=== PATIENT | male | born 1960 | race Hispanic/Latino ===

== ENCOUNTER → 2018-01-06 | Outpatient (CLI) | payer OTHER, MEDICARE ==
[~2018-01-06] VITALS: Ht 167.6 cm; Wt 111.6 kg
[~2018-01-06] MED LIST: REGADENOSON 0.4 MG/5 ML PF SYG IVP SCH
== END | disposition home or self-care (01) ==
LOC: SHCH 08:20
PROVIDERS: ATTEND Internal Medicine Cardiovascular Disease
DX: I25.10 Atherosclerotic heart disease of native coronary artery without angina pectoris (principal); I10 Essential (primary) hypertension
CPT/HCPCS: 78452; 93017; 96374; A9500 ×2; J2785

== ENCOUNTER 2018-06-26 16:44 | Emergency (ER) | payer OTHER, MEDICARE ==
[2018-06-26] MEDS ORDERED: ETOMIDATE 2 MG/ML 10 ML VIAL ONE ×2 (18:57→22:03)
[2018-06-26] MEDS ORDERED: TRAMADOL HCL 50 MG TABLET ONE (21:01)
[2018-06-26] MEDS ORDERED: ONDANSETRON HCL 4 MG/2 ML VIAL ONE (22:40)
[2018-06-26] MEDS ORDERED: MORPHINE SULFATE 2 MG/ML 1ML SYG ONE (22:41)
[2018-06-29] MEDS ORDERED: LISI-613 PO (16:00)
[2018-06-29] MEDS ORDERED: DULA1.5P SQ (16:00)
[2018-06-29] MEDS ORDERED: TOPI100T37 PO (16:00)
[2018-06-29] MEDS ORDERED: FLUT1AER IH (16:00)
[2018-06-29] MEDS ORDERED: INSU3INS3 SQ (16:00)
[2018-06-29] MEDS ORDERED: EMPA25TA PO (16:00)
[2018-06-29] MEDS ORDERED: METF-444 PO (16:00)
[2018-06-29] MEDS ORDERED: TRAM50TA4 PO (16:00)
[2018-06-29] MEDS ORDERED: EZET10TA26 PO (16:00)
[2018-06-29] MEDS ORDERED: GEMF600T4 PO (16:00)
[2018-06-29] MEDS ORDERED: LEVO500T89 PO (16:00)
[2018-06-29] MEDS ORDERED: UMEC62.5 IH (16:13)
== END 2018-06-27 00:10 | disposition home or self-care (01) ==
LOC: EDH 16:44
DX: S43.085A Other dislocation of left shoulder joint, initial encounter (principal); L03.114 Cellulitis of left upper limb; L03.112 Cellulitis of left axilla; I10 Essential (primary) hypertension; E11.9 Type 2 diabetes mellitus without complications; E78.5 Hyperlipidemia, unspecified; Z87.891 Personal history of nicotine dependence; W18.30XA Fall on same level, unspecified, initial encounter; Y93.01 Activity, walking, marching and hiking; Y92.009 Unspecified place in unspecified non-institutional (private) residence as the place of occurrence of the external cause; Y99.8 Other external cause status
CPT/HCPCS: 23650; 73020 ×2; 73030 ×2; 73200; 96374; 96375; 99284; J2405; J3490 ×2

== ENCOUNTER 2018-06-30 09:44 | Observation (INO) | payer OTHER, MEDICARE ==
[2018-06-29 15:40] VITALS: BP 119/67
[2018-06-29 15:50] LABS: CREATININE 0.7 mg/dL (0.5-1.5); POTASSIUM 4.2 mmol/L (3.5-5.1)
[2018-06-30] VITALS (16 sets, daily range): BP systolic 99–127; BP diastolic 54–82
[~2018-06-30] VITALS: Ht 160 cm; Wt 104.7 kg
[~2018-06-30 09:44] MED LIST changes: +CEFAZOLIN 3GM /D5W 100ML 100 ML IV PRN; +DULA1.5P SQ; +EMPA25TA PO; +EZET10TA26 PO; +FLUT1AER IH; +GEMF600T4 PO; +INSU3INS3 SQ; +LEVO500T89 PO; +LISI-613 PO; +METF-444 PO; -REGADENOSON 0.4 MG/5 ML PF SYG IVP SCH; +TOPI100T37 PO; +TRAM50TA4 PO; +UMEC62.5 IH
[2018-06-30] MEDS ORDERED: SODIUM CHLORIDE 0.9% 1000ML 1,000 ML IV ONE (10:28)
[2018-06-30] MEDS ORDERED: CEFAZOLIN SODIUM 1 GM VIAL ONE (10:28)
[2018-06-30] MEDS ORDERED: CLINDAMYCIN 900 MG/D5% WATER 50 ML IV ONE (10:40)
[2018-06-30] MEDS ORDERED: ROPIVACAINE 0.5% 5MG/ML 30ML IJ ONE (13:11)
[2018-06-30] MEDS ORDERED: SODIUM CHLORIDE 0.9% 10 ML VIAL ONE (13:13)
[2018-06-30] MEDS ORDERED: GLYCOPYRROLATE 1 MG/5 ML SYRINGE ONE (13:18)
[2018-06-30] MEDS ORDERED: FENTANYL CITRATE PF 50 MCG/1 ML 2ML VIAL ONE ×3 (13:18→18:27)
[2018-06-30] MEDS ORDERED: ONDANSETRON HCL 4 MG/2 ML VIAL ONE ×2 (13:18→13:49)
[2018-06-30] MEDS ORDERED: DEXAMETHASONE SOD PHOSPHATE 10MG/ML 1ML VIAL ONE ×2 (13:18→13:49)
[2018-06-30] MEDS ORDERED: PROPOFOL 10 MG/ML 20ML VIAL IV ONE (13:18)
[2018-06-30] MEDS ORDERED: NEOSTIGMINE 5MG/5ML SYR IV ONE (13:18)
[2018-06-30] MEDS ORDERED: MIDAZOLAM HCL 1 MG/ML 2ML VIAL ONE (13:18)
[2018-06-30] MEDS ORDERED: LIDOCAINE PF 2% 5ML ABBOJECT ONE ×2 (13:18→13:20)
[2018-06-30] MEDS ORDERED: ROCURONIUM 10MG/1ML SYR 10 MG/ML ML ONE (13:19)
[2018-06-30] MEDS ORDERED: CLINDAMYCIN PHOSPHATE 150 MG/ML 6ML VIAL ONE (13:25)
[2018-06-30] MEDS ORDERED: PHENYLEPHRINE HCL 10 MG/ML 1ML VIAL IV ONE (13:52)
[2018-06-30] MEDS: SODIUM CHLORIDE 0.9% 1000ML 1,000 ML IV SCH (16:59)
[2018-06-30] MEDS ORDERED: TRAMADOL HCL 50 MG TABLET PO PRN (17:00)
[2018-06-30] MEDS ORDERED: CALCIUM CARBONATE 500 MG TABLET PO PRN (17:00)
[2018-06-30] MEDS ORDERED: LIDOCAINE HCL-MPF 1% 2ML VIAL IVP PRN (17:00)
[2018-06-30] MEDS ORDERED: DiphenhydrAMINE HCL 50 MG/ML VIAL IVP PRN (17:00)
[2018-06-30] MEDS ORDERED: POTASSIUM CHLORIDE 20MEQ/100ML 100 ML IV PRN (17:00)
[2018-06-30] MEDS ORDERED: POTASSIUM CHLORIDE 20 MEQ ERTAB PO PRN (17:00)
[2018-06-30] MEDS ORDERED: POTASSIUM CHLORIDE 10% ELIXIR 20 MEQ/15 ML UDCUP PO PRN (17:00)
[2018-06-30] MEDS ORDERED: DIPHENHYDRAMINE HCL 25 MG CAPSULE PO PRN (17:00)
[2018-06-30] MEDS ORDERED: OXYCODONE HCL 5 MG TAB PO PRN (17:00)
[2018-06-30] MEDS ORDERED: PROMETHAZINE HCL 25 MG/ML 1ML AMPULE IM PRN (17:00)
[2018-06-30] MEDS ORDERED: FERROUS FUMARATE 324 MG TABLET PO PRN (17:00)
[2018-06-30] MEDS ORDERED: TEMAZEPAM 15 MG CAPSULE PO PRN (17:00)
[2018-06-30] MEDS ORDERED: KETOROLAC TROMETHAMINE 15MG/ML IV PRN (17:00)
[2018-06-30] MEDS: ACETAMINOPHEN EXTRA STRENGTH 500 MG TABLET PO SCH (17:00)
[2018-06-30] MEDS: INSULIN HUMULIN R 100 UNIT/ML 3ML SQ SCH (21:00)
[2018-06-30] MEDS ORDERED: CEFAZOLIN 3GM /D5W 100ML 100 ML IV SCH (22:00)
[2018-06-30] MEDS: FAMOTIDINE 20MG TAB 20 MG TAB PO SCH (23:33)
[2018-06-30] MEDS: CELECOXIB 200 MG CAP PO SCH (23:34)
[2018-06-30] MEDS: CLINDAMYCIN 900 MG/D5% WATER 50 ML IVPB SCH (23:34)
[2018-07-01] MEDS: ACETAMINOPHEN EXTRA STRENGTH 500 MG TABLET PO SCH ×3 (01:44→16:46)
[2018-07-01] MEDS: SODIUM CHLORIDE 0.9% 1000ML 1,000 ML IV SCH (02:59)
[2018-07-01] MEDS ORDERED: TRAMADOL HCL 50 MG TABLET PO PRN (03:15)
[2018-07-01 03:20] VITALS: BP 105/70
[2018-07-01 04:55] LABS: HEMATOCRIT 40.9 % (42-54); MEAN CORPUSCULAR HEMOGLOBIN 25.8 pg (27.0-33.0); MEAN CORPUSCULAR HGB CONC 31.2 g/dL (32.0-36.0); MEAN CORPUSCULAR VOLUME 82.7 fL (79-99); PLATELET COUNT (AUTO) 293 K/uL (130-400); RED BLOOD CELL COUNT(AUTO) 4.95 MIL/uL (4.50-6.20); RED CELL DISTRIBUTION WIDTH 15.5 % (11.0-15.5); WHITE BLOOD COUNT (AUTO) 11.2 K/uL (4.8-10.8)
[2018-07-01 05:04] LABS: CREATININE 0.6 mg/dL (0.5-1.5)
[2018-07-01] MEDS: ALBUTEROL SULFATE 0.083% 2.5 MG/3 ML INH IH SCH ×4 (06:09→23:45)
[2018-07-01] MEDS: CLINDAMYCIN 900 MG/D5% WATER 50 ML IVPB SCH (06:20)
[2018-07-01] MEDS: BUDESONIDE 0.5 MG/2 ML INH IH SCH ×2 (06:40→18:42)
[2018-07-01] MEDS: INSULIN HUMULIN R 100 UNIT/ML 3ML SQ SCH ×4 (06:58→21:00)
[2018-07-01 08:00] VITALS: BP 106/63
[2018-07-01] MEDS: EMPAGLIFLOZIN 25 MG PO SCH (09:00)
[2018-07-01] MEDS: TOPIRAMATE 100 MG TAB PO SCH ×2 (09:00→21:00)
[2018-07-01] MEDS: CELECOXIB 200 MG CAP PO SCH ×2 (09:14→21:00)
[2018-07-01] MEDS: POLYETHYLENE GLYCOL 3350 17 GM POWD.PACK PO SCH (09:14)
[2018-07-01] MEDS: GEMFIBROZIL 600 MG TABLET PO SCH ×2 (09:14→21:00)
[2018-07-01] MEDS: ENOXAPARIN SODIUM 40 MG/0.4 ML SYRINGE SQ SCH (09:14)
[2018-07-01] MEDS: FAMOTIDINE 20MG TAB 20 MG TAB PO SCH ×2 (09:15→21:00)
[2018-07-01] MEDS: TAMSULOSIN HCL 0.4 MG CAP.ER.24H PO SCH (09:15)
[2018-07-01] MEDS: INSULIN GLARGINE 100 UNITS/ML 10 ML VIAL SQ SCH ×2 (09:30→21:14)
[2018-07-01 11:00] VITALS: BP 108/64
[2018-07-01] MEDS: PSYLLIUM SEED 1 EACH PACKET PO SCH (12:00)
[2018-07-01] MEDS ORDERED: METFORMIN HCL 500 MG TABLET ONE (15:29)
[2018-07-01] MEDS: OXYCODONE HCL 5 MG TAB PO PRN ×2 (15:32→21:01)
[2018-07-01] MEDS: METFORMIN HCL 500 MG TABLET PO SCH (15:32)
[2018-07-01 16:00] VITALS: BP 118/64
[2018-07-01 19:15] VITALS: BP 113/70
[2018-07-01] MEDS ORDERED: EZETIMIBE 10 MG TAB PO SCH (21:00)
[2018-07-01] MEDS ORDERED: UMECLIDINIUM BROMIDE 62.5 MCG IH SCH (21:00)
[2018-07-01] MEDS ORDERED: LISINOPRIL 20 MG TABLET PO SCH (21:00)
[2018-07-01 23:10] VITALS: BP 128/78
[2018-07-02] MEDS: ACETAMINOPHEN EXTRA STRENGTH 500 MG TABLET PO SCH ×2 (00:08→08:31)
[2018-07-02 03:25] VITALS: BP 107/59
[2018-07-02 04:44] LABS: HEMATOCRIT 36.2 % (42-54); MEAN CORPUSCULAR HEMOGLOBIN 27.2 pg (27.0-33.0); MEAN CORPUSCULAR HGB CONC 33.1 g/dL (32.0-36.0); MEAN CORPUSCULAR VOLUME 82.2 fL (79-99); PLATELET COUNT (AUTO) 263 K/uL (130-400); RED BLOOD CELL COUNT(AUTO) 4.41 MIL/uL (4.50-6.20); RED CELL DISTRIBUTION WIDTH 15.4 % (11.0-15.5); WHITE BLOOD COUNT (AUTO) 9.9 K/uL (4.8-10.8)
[2018-07-02 04:54] LABS: CREATININE 0.5 mg/dL (0.5-1.5); POTASSIUM 3.7 mmol/L (3.5-5.1)
[2018-07-02] MEDS: ALBUTEROL SULFATE 0.083% 2.5 MG/3 ML INH IH SCH ×2 (06:14→10:55)
[2018-07-02] MEDS: BUDESONIDE 0.5 MG/2 ML INH IH SCH (06:14)
[2018-07-02] MEDS: INSULIN HUMULIN R 100 UNIT/ML 3ML SQ SCH ×2 (06:40→11:30)
[2018-07-02 07:00] VITALS: BP 122/64
[2018-07-02] MEDS: INSULIN GLARGINE 100 UNITS/ML 10 ML VIAL SQ SCH (08:28)
[2018-07-02] MEDS: ENOXAPARIN SODIUM 40 MG/0.4 ML SYRINGE SQ SCH (08:30)
[2018-07-02] MEDS: GEMFIBROZIL 600 MG TABLET PO SCH (08:31)
[2018-07-02] MEDS: CELECOXIB 200 MG CAP PO SCH (08:31)
[2018-07-02] MEDS: TAMSULOSIN HCL 0.4 MG CAP.ER.24H PO SCH (08:31)
[2018-07-02] MEDS: TOPIRAMATE 100 MG TAB PO SCH (08:32)
[2018-07-02] MEDS: POLYETHYLENE GLYCOL 3350 17 GM POWD.PACK PO SCH (08:32)
[2018-07-02] MEDS: FAMOTIDINE 20MG TAB 20 MG TAB PO SCH (08:32)
[2018-07-02] MEDS: METFORMIN HCL 500 MG TABLET PO SCH (08:33)
[2018-07-02] MEDS: EMPAGLIFLOZIN 25 MG PO SCH (09:00)
[2018-07-02 11:00] VITALS: BP 139/84
[2018-07-02] MEDS: PSYLLIUM SEED 1 EACH PACKET PO SCH (12:00)
[2018-07-02] MEDS ORDERED: TRAM50TA4 PO (13:14)
[2018-07-02 16:00] VITALS: BP 113/69
[2018-07-02] MEDS ORDERED: BISACODYL 5 MG TABLET.DR PO PRN (17:00)
[2018-07-03] MEDS ORDERED: BISACODYL 10 MG SUPP.RECT RC PRN (17:00)
== END 2018-07-02 17:30 | disposition home or self-care (01) ==
LOC: SUH 09:44 → DAH 09:44 → 4AH 09:45 → SUH 09:45
PROVIDERS: ADMIT Orthopaedic Surgery; ATTEND Orthopaedic Surgery
DX: S42.142A Displaced fracture of glenoid cavity of scapula, left shoulder, initial encounter for closed fracture (principal); M75.100 Unspecified rotator cuff tear or rupture of unspecified shoulder, not specified as traumatic; S43.036A Inferior dislocation of unspecified humerus, initial encounter; S43.012A Anterior subluxation of left humerus, initial encounter; M21.822 Other specified acquired deformities of left upper arm; E78.5 Hyperlipidemia, unspecified; G47.33 Obstructive sleep apnea (adult) (pediatric); E11.42 Type 2 diabetes mellitus with diabetic polyneuropathy; X58.XXXA Exposure to other specified factors, initial encounter; Y93.89 Activity, other specified; Y92.89 Other specified places as the place of occurrence of the external cause; Y99.8 Other external cause status; Z79.899 Other long term (current) drug therapy; Z83.3 Family history of diabetes mellitus; Z88.8 Allergy status to other drugs, medicaments and biological substances
CPT/HCPCS: 36415; 70450; 80048; 82948; 85027; 94640; 94664; 96365; 96366; 96372; A4565; G0378; J0690; J1100; J1650; J1815; J1885; J2001; J2250; J2370; J2405; J2704; J2710; J2795; J3010; J3490; J7030

== ENCOUNTER → 2018-10-11 | Outpatient (CLI) | payer OTHER, MEDICARE ==
[~2018-10-11] MED LIST changes: -CEFAZOLIN 3GM /D5W 100ML 100 ML IV PRN; -GEMF600T4 PO; +GEMF600T5 PO; -LEVO500T89 PO
== END | disposition home or self-care (01) ==
LOC: RAH 11:43
PROVIDERS: ATTEND Internal Medicine
DX: I10 Essential (primary) hypertension (principal); Z87.891 Personal history of nicotine dependence
CPT/HCPCS: 71046

== ENCOUNTER 2018-11-07 14:45 | Inpatient (IN) | payer OTHER, MEDICARE ==
[~2018-11-07] VITALS: Ht 160 cm; Wt 105.6 kg
[~2018-11-07 14:45] MED LIST changes: -DULA1.5P SQ; -EMPA25TA PO; -GEMF600T5 PO; -INSU3INS3 SQ; -METF-444 PO; -TRAM50TA4 PO
[2018-11-07 16:35] VITALS: BP 123/66
[2018-11-07 16:38] LABS: BASOPHILS % (AUTO) 1.1 % (0.0-5.0); EOSINOPHILS % (AUTO) 0.5 % (0.0-8.0); HEMATOCRIT 39.4 % (42-54); LYMPHOCYTES % (AUTO) 20.4 % (21.0-51.0); MEAN CORPUSCULAR HEMOGLOBIN 26.2 pg (27.0-33.0); MEAN CORPUSCULAR VOLUME 79.5 fL (79-99); MONOCYTES % (AUTO) 4.8 % (3.0-13.0); NEUTROPHILS % (AUTO) 73.2 % (40.0-77.0); PLATELET COUNT (AUTO) 226 K/uL (130-400); RED BLOOD CELL COUNT(AUTO) 4.95 MIL/uL (4.50-6.20); RED CELL DISTRIBUTION WIDTH 17.1 % (11.0-15.5); WHITE BLOOD COUNT (AUTO) 12.6 K/uL (4.8-10.8)
[2018-11-07 17:02] LABS: APPEARANCE,URINE SL CLOUDY (CLEAR); BILIRUBIN,URINE NEGATIVE (NEGATIVE); COLOR,URINE YELLOW (YELLOW); GLUCOSE, URINE (UA) NEGATIVE (NEGATIVE); KETONES,URINE NEGATIVE (NEGATIVE); LEUKOCYTE ESTERASE ,URINE TRACE (NEGATIVE); NITRATE,URINE NEGATIVE (NEGATIVE); OCCULT BLOOD,URINE NEGATIVE (NEGATIVE); PH,URINE 6.5 (5.0-8.0); PROTEIN,URINE NEGATIVE (NEGATIVE); UROBILINOGEN,URINE 0.2 mg/dL (0.2-1.0)
[2018-11-07 17:14] LABS: AMORPHOUS SEDIMENT,UR Few /LPF (None Seen); BACTERIA,URINE Rare /HPF (None Seen); RBC,URINE None Seen /HPF (0-1); SQUAMOUS EPITHELIAL CELL,UR None Seen /HPF (0-2); WBC,URINE 0-1 /HPF (0-1)
--- NOTE | 2018-11-07 17:30 | NUR ---
INSTRUCTED TO BRING C-PAP DAY OF SURGERY ,VERBALIZE UNDERSTANDING
--- NOTE | 2018-11-07 17:32 | NUR ---
LABS INFORMED DR. HARTMANN OF ABNORMAL UA AND WBC IN CBC. NO ORDERS RECEIVED. PROCEED WITH PLANNED PROCEDURE.
[2018-11-07] MEDS ORDERED: PROAIR HFA (17:46)
[2018-11-07] MEDS ORDERED: TRAM50TA4 PO (17:46)
[2018-11-07] MEDS ORDERED: PRAV40TA3 PO (17:46)
[2018-11-07] MEDS ORDERED: TRULICITY SQ (17:46)
[2018-11-07] MEDS ORDERED: INSU3INS3 SQ (17:46)
[2018-11-08] VITALS (18 sets, daily range): BP systolic 104–122; BP diastolic 56–69
[2018-11-08] MEDS: CLINDAMYCIN 900 MG/D5% WATER 50 ML IV SCH ×2 (06:00→15:20)
[2018-11-08] MEDS ORDERED: SODIUM CHLORIDE 0.9% 1000ML 1,000 ML IV ONE (11:57)
--- NOTE | 2018-11-08 12:29 | NUR ---
POTENTIAL FOR INFECTION SHAVED LEFT SHOULDER AND WIPED WITH FRED: 2% CHLORHEXIDINE GLUCONATE CLOTH PATIENTS PRE-OP SKIN PREP PER TIFFANY QUEZADA.
[2018-11-08] MEDS ORDERED: METOCLOPRAMIDE 10 MG/2 ML VIAL ONE (12:45)
[2018-11-08] MEDS ORDERED: ACETAMINOPHEN EXTRA STRENGTH 500 MG TABLET ONE ×2 (12:45→12:47)
[2018-11-08] MEDS ORDERED: KETOROLAC TROMETHAMINE 15MG/ML ONE (12:45)
[2018-11-08] MEDS ORDERED: OXYCODONE HCL 10 MG TAB.SR.12H PO ONE (12:46)
[2018-11-08] MEDS ORDERED: CELECOXIB 200 MG CAP ONE (12:46)
[2018-11-08] MEDS ORDERED: CEFAZOLIN SODIUM 1 GM VIAL ONE (12:47)
[2018-11-08] MEDS ORDERED: CLINDAMYCIN PHOSPHATE 150 MG/ML 6ML VIAL ONE ×2 (13:11→18:48)
[2018-11-08] MEDS ORDERED: TRANEXAMIC ACID 1000MG/10ML IV ONE (13:11)
--- NOTE | 2018-11-08 13:20 | NUR ---
CLARIFICATION ORDERS discussed allergies with Dr Burciaga ,reviewed previous chart from Jun admission okay to give clindamycin and oxycodone as ordered
[2018-11-08] MEDS ORDERED: ROCURONIUM 10MG/1ML SYR 10 MG/ML ML ONE (14:12)
[2018-11-08] MEDS ORDERED: SUCCINYLCHOLINE 200MG/10ML SYR ONE ×2 (14:12→14:14)
[2018-11-08] MEDS ORDERED: PROPOFOL 10 MG/ML 20ML VIAL IV ONE (14:12)
[2018-11-08] MEDS ORDERED: FENTANYL CITRATE PF 50 MCG/1 ML 2ML VIAL ONE ×2 (14:12→18:59)
[2018-11-08] MEDS ORDERED: LIDOCAINE PF 2% 5ML ABBOJECT ONE (14:12)
[2018-11-08] MEDS ORDERED: ROPIVACAINE 0.5% 5MG/ML 30ML IJ ONE (14:14)
[2018-11-08] MEDS ORDERED: MIDAZOLAM HCL 1 MG/ML 2ML VIAL ONE (14:43)
[2018-11-08] MEDS ORDERED: EPHEDRINE SULFATE 50 MG/ML AMPULE ONE ×2 (14:58→19:08)
[2018-11-08] MEDS ORDERED: CLINDAMYCIN PHOSPHATE 150 MG/ML 6ML VIAL IJ ONE (16:15)
[2018-11-08] MEDS ORDERED: GLYCOPYRROLATE 1 MG/5 ML SYRINGE ONE (17:28)
[2018-11-08] MEDS ORDERED: NEOSTIGMINE 5MG/5ML SYR IV ONE (17:33)
[2018-11-08] MEDS ORDERED: CALCIUM CARBONATE 500 MG TABLET PO PRN (19:00)
[2018-11-08] MEDS ORDERED: ONDANSETRON HCL 4 MG/2 ML VIAL IVP PRN (19:00)
[2018-11-08] MEDS ORDERED: DiphenhydrAMINE HCL 50 MG/ML VIAL IVP PRN (19:00)
[2018-11-08] MEDS ORDERED: LIDOCAINE HCL-MPF 1% 2ML VIAL IVP PRN (19:00)
[2018-11-08] MEDS ORDERED: TRAMADOL HCL 50 MG TABLET PO PRN ×2 (19:00→20:45)
[2018-11-08] MEDS ORDERED: TEMAZEPAM 15 MG CAPSULE PO PRN (19:00)
[2018-11-08] MEDS ORDERED: FE FUMARATE/FA/MV, MIN COMB#15 1 TAB PO PRN (19:00)
[2018-11-08] MEDS ORDERED: KETOROLAC TROMETHAMINE 15MG/ML IV PRN (19:00)
[2018-11-08] MEDS ORDERED: POTASSIUM CHLORIDE 10% ELIXIR 20 MEQ/15 ML UDCUP PO PRN (19:00)
[2018-11-08] MEDS ORDERED: POTASSIUM CHLORIDE 20 MEQ ERTAB PO PRN (19:00)
[2018-11-08] MEDS ORDERED: POTASSIUM CHLORIDE 20MEQ/100ML 100 ML IV PRN (19:00)
[2018-11-08] MEDS ORDERED: MEPERIDINE-PF 25 MG/ML SYG ONE ×2 (19:43→19:58)
[2018-11-08] MEDS: SODIUM CHLORIDE 0.9% 1000ML 1,000 ML IV SCH (20:47)
[2018-11-08] MEDS ORDERED: PROAIR SCH (21:00)
[2018-11-08] MEDS: TOPIRAMATE 100 MG TAB PO SCH (21:43)
[2018-11-08] MEDS: PREGABALIN 25 MG CAP PO SCH (21:43)
[2018-11-08] MEDS: FAMOTIDINE 20MG TAB 20 MG TAB PO SCH (21:44)
[2018-11-08] MEDS: CELECOXIB 200 MG CAP PO SCH (21:44)
[2018-11-08] MEDS: EZETIMIBE 10 MG TAB PO SCH (21:44)
[2018-11-08] MEDS: LISINOPRIL 20 MG TABLET PO SCH (21:44)
[2018-11-08] MEDS: ASPIRIN 325 MG TABLET PO SCH (21:44)
[2018-11-08] MEDS: OXYCODONE HCL 5 MG TAB PO PRN (21:45)
[2018-11-08] MEDS: BUDESONIDE 0.5 MG/2 ML INH IH SCH (22:07)
[2018-11-08] MEDS: INSULIN GLARGINE 100 UNITS/ML 10 ML VIAL SQ SCH (22:21)
[2018-11-08] MEDS: INSULIN HUMULIN R 100 UNIT/ML 3ML SQ SCH (22:22)
[2018-11-08] MEDS: ALBUTEROL SULFATE 0.083% 2.5 MG/3 ML INH IH SCH (23:27)
[2018-11-08] MEDS: IPRATROPIUM 0.5 MG/2.5 ML INH IH SCH (23:27)
[2018-11-08] MEDS: CLINDAMYCIN 900 MG/D5% WATER 50 ML IVPB SCH (23:33)
[2018-11-09 04:00] VITALS: BP 102/54
[2018-11-09] MEDS: SODIUM CHLORIDE 0.9% 1000ML 1,000 ML IV SCH ×2 (04:53→14:53)
[2018-11-09 05:21] LABS: POTASSIUM 4.3 mmol/L (3.5-5.1)
[2018-11-09] MEDS: INSULIN HUMULIN R 100 UNIT/ML 3ML SQ SCH ×4 (06:25→21:10)
[2018-11-09] MEDS: ALBUTEROL SULFATE 0.083% 2.5 MG/3 ML INH IH SCH ×4 (06:27→23:04)
[2018-11-09] MEDS: BUDESONIDE 0.5 MG/2 ML INH IH SCH ×2 (06:28→18:54)
[2018-11-09] MEDS: IPRATROPIUM 0.5 MG/2.5 ML INH IH SCH ×4 (06:28→23:04)
[2018-11-09 07:17] LABS: HEMATOCRIT 34.6 % (42-54); MEAN CORPUSCULAR HEMOGLOBIN 25.8 pg (27.0-33.0); MEAN CORPUSCULAR HGB CONC 32.1 g/dL (32.0-36.0); MEAN CORPUSCULAR VOLUME 80.5 fL (79-99); NUCLEATED RED BLOOD CELLS 0.1 % (0.0-0.19); PLATELET COUNT (AUTO) 229 K/uL (130-400); RED CELL DISTRIBUTION WIDTH 17.7 % (11.0-15.5); WHITE BLOOD COUNT (AUTO) 14.4 K/uL (4.8-10.8)
[2018-11-09 08:04] VITALS: BP 92/55
[2018-11-09] MEDS: PREGABALIN 25 MG CAP PO SCH ×2 (08:48→20:16)
[2018-11-09] MEDS: ASPIRIN 325 MG TABLET PO SCH ×2 (08:48→20:16)
[2018-11-09] MEDS: FAMOTIDINE 20MG TAB 20 MG TAB PO SCH ×2 (08:48→20:16)
[2018-11-09] MEDS: TAMSULOSIN HCL 0.4 MG CAP.ER.24H PO SCH (08:48)
[2018-11-09] MEDS: POLYETHYLENE GLYCOL 3350 17 GM POWD.PACK PO SCH (08:48)
[2018-11-09] MEDS: CELECOXIB 200 MG CAP PO SCH ×2 (08:48→20:16)
[2018-11-09] MEDS: TOPIRAMATE 100 MG TAB PO SCH ×2 (08:48→20:16)
[2018-11-09] MEDS: OXYCODONE HCL 5 MG TAB PO PRN ×3 (08:49→20:19)
[2018-11-09] MEDS: CLINDAMYCIN 900 MG/D5% WATER 50 ML IVPB SCH (08:49)
[2018-11-09] MEDS: INSULIN GLARGINE 100 UNITS/ML 10 ML VIAL SQ SCH ×2 (08:58→21:11)
--- NOTE | 2018-11-09 09:45 | NUR ---
DCP CM met with pt discussed dc plans. Pt is independent prior to admission, lives athome with spouse. Has a cane, shower chair, oxygen portable and stationary, cpap, provider [id number] Sun 3.5hrs. Pt feels safe to go back home, agreeable for home w/HH, UNIQUE signed for [facility]. Faxed order and clinicals. DC plan to home w/HH. CM to cont to follow up. Addendum: 11/09/18 at 1613 by BRYANT ALONSO LVN CM Amended: Links added.
[2018-11-09] MEDS: ATORVASTATIN CALCIUM 10 MG TABLET PO SCH (11:43)
[2018-11-09 11:52] VITALS: BP 90/54
[2018-11-09 16:13] VITALS: BP 91/50
--- NOTE | 2018-11-09 16:14 | NUR ---
CM Note: [facility] approval and acceptance Spoke to Elana [email or web address]/ , pt has approval and acceptance. Pt safe to dc to home via private car once MD clears. Primary nurse aware. CM to cont to follow up.
[2018-11-09] MEDS ORDERED: SODIUM CHLORIDE 0.9% 500ML 500 ML IV SCH (16:15)
--- NOTE | 2018-11-09 16:15 | NUR ---
BLOOD PRESSURE BLOOD PRESSURE NOTED TO BE AROUND 90/50s. MD CALLED, NEW ORDER FOR 500 BOLUS. BOLUS INITIATED, FAMILY AT BEDSIDE. ASYMPTOMATIC TO CURRENT BLOOD PRESSURE. WILL MONITOR PT CLOSELY.
[2018-11-09 19:25] VITALS: BP 94/42
[2018-11-09] MEDS: EZETIMIBE 10 MG TAB PO SCH (20:16)
[2018-11-09] MEDS: LISINOPRIL 20 MG TABLET PO SCH (20:20)
[2018-11-09 23:16] VITALS: BP 90/48
[2018-11-10 03:35] VITALS: BP 108/60
[2018-11-10 04:23] LABS: HEMATOCRIT 28.1 % (42-54)
[2018-11-10] MEDS: ALBUTEROL SULFATE 0.083% 2.5 MG/3 ML INH IH SCH ×3 (05:27→18:25)
[2018-11-10] MEDS: IPRATROPIUM 0.5 MG/2.5 ML INH IH SCH ×3 (05:27→18:25)
[2018-11-10] MEDS: BUDESONIDE 0.5 MG/2 ML INH IH SCH (05:28)
[2018-11-10] MEDS: INSULIN HUMULIN R 100 UNIT/ML 3ML SQ SCH ×3 (05:41→16:30)
[2018-11-10] MEDS ORDERED: IOHEXOL-350 50ML VIAL IV ONE (06:11)
[2018-11-10 07:30] VITALS: BP 100/62
[2018-11-10] MEDS: POLYETHYLENE GLYCOL 3350 17 GM POWD.PACK PO SCH (08:39)
[2018-11-10] MEDS: TOPIRAMATE 100 MG TAB PO SCH (08:39)
[2018-11-10] MEDS: CELECOXIB 200 MG CAP PO SCH (08:39)
[2018-11-10] MEDS: PREGABALIN 25 MG CAP PO SCH (08:39)
[2018-11-10] MEDS: TAMSULOSIN HCL 0.4 MG CAP.ER.24H PO SCH (08:39)
[2018-11-10] MEDS: FAMOTIDINE 20MG TAB 20 MG TAB PO SCH (08:39)
[2018-11-10] MEDS: INSULIN GLARGINE 100 UNITS/ML 10 ML VIAL SQ SCH (08:40)
[2018-11-10] MEDS: ASPIRIN 325 MG TABLET PO SCH (08:40)
[2018-11-10 11:00] VITALS: BP 94/47
[2018-11-10] MEDS: ATORVASTATIN CALCIUM 10 MG TABLET PO SCH (12:12)
[2018-11-10 16:00] VITALS: BP 98/53
[2018-11-10] MEDS ORDERED: TRAM50TA4 PO (17:04)
--- NOTE | 2018-11-10 18:52 | NUR ---
DISCHARGE DISCHARGE TEACHING PROVIDED TO PATIENT. RX TEACHING (Thryve) PROVIDED TO PATIENT, PATIENT TO CONTINUE HOME MEDS INCLUDING ELIQUIS. PROVIDED EDUCATION REGARDING TEDS HOSE USE, DR. HARTMANN DISCHARGE INSTRUCTIONS, INFORMED PATIENT OF SCHEDULED F/U WITH DR. HARTMANN, PATIENT VERBALIZED UNDERSTANDING OF DISCHARGE TEACHING. PATIENT REPORTS NO PAIN AND IS IN NO APPARENT DISTRESS. PATIENT TO BE DRIVEN HOME BY HER . Addendum: 11/10/18 at 1900 by DARRELL MOREL RN RN DISREGARD. NURSE NOTE FOR ANOTHER PATIENT. ENTERED IN ERROR.
--- NOTE | 2018-11-10 19:01 | NUR ---
[facility] [employer] CALLED [facility] [phone] TO GIVE NURSE REPORT. WAS TOLD [facility] NURSE [place] WOULD BE PAGED. GAVE MY CALLBACK NUMBER. AWAITING CALLBACK.
--- NOTE | 2018-11-10 19:49 | NUR ---
DISCHARGE NURSE REPORT GIVEN TO [facility], RN [phone]. DISCHARGE TEACHING GIVEN TO PATIENT REGARDING RX (TRAMADOL), SCHEDULE F/U APPT, DR. HARTMANN DISCHARGE INSTRUCTIONS, INFORMED PATIENT OF SCHEDULED F/U APPT WITH DR. HARTMANN. PATIENT VERBALIZED UNDERSTANDING OF DISCHARGE TEACHING. COPY OF DR. HARTMANN DISCHARGE ORDERS GIVEN TO PATIENT AND INSTRUCTED TO GIVE TO [facility] NURSE. PATIENT HAS LEFT ARM SLING IN PLACE AT TIME IF DISCHARGE, LEFT ARM DRESSING DRY AND INTACT. PATIENT TO BE DRIVEN HOME BY HIS .
[2018-11-11] MEDS ORDERED: BISACODYL 10 MG SUPP.RECT RC PRN (19:00)
== END 2018-11-10 19:56 | disposition home health service (06) | DRG 483 ==
LOC: EDSTATUS 14:45 → DAHIP 11-08 11:00 → 4AH 11-08 16:17
PROVIDERS: ADMIT Orthopaedic Surgery; ATTEND Orthopaedic Surgery
PROC: 0RRK00Z Replacement of Left Shoulder Joint with Reverse Ball and Socket Synthetic Substitute, Open Approach (ICD-10-PCS; principal; 2018-11-08 14:20)
PROC: 3E0T3BZ Introduction of Anesthetic Agent into Peripheral Nerves and Plexi, Percutaneous Approach (ICD-10-PCS; 2018-11-08 14:20)
DX: M24.412 Recurrent dislocation, left shoulder (principal); E11.9 Type 2 diabetes mellitus without complications; E78.1 Pure hyperglyceridemia; E78.5 Hyperlipidemia, unspecified; G47.33 Obstructive sleep apnea (adult) (pediatric); J30.9 Allergic rhinitis, unspecified; J40 Bronchitis, not specified as acute or chronic; J43.9 Emphysema, unspecified; M19.90 Unspecified osteoarthritis, unspecified site; Z96.643 Presence of artificial hip joint, bilateral; Z79.4 Long term (current) use of insulin; Z82.49 Family history of ischemic heart disease and other diseases of the circulatory system; Z83.3 Family history of diabetes mellitus; Z87.891 Personal history of nicotine dependence; Z88.0 Allergy status to penicillin; Z88.8 Allergy status to other drugs, medicaments and biological substances
CPT/HCPCS: 36415; 73020; 80048; 81001; 82948; 85014; 85018; 85025; 85027; 88304; 88311; 94640; 94664; 96374; 96375; G0378; J0330; J0690; J1815; J1885; J2001; J2175; J2250; J2704; J2710; J2765; J2795; J3010; J3490; J7030; Q9967

== ENCOUNTER 2019-10-03 07:39 | Day surgery (SDC) | payer OTHER, MEDICARE ==
[~2019-10-03] VITALS: Ht 157.5 cm; Wt 113.4 kg
[~2019-10-03 07:39] MED LIST changes: -EZET10TA26 PO; +EZET10TA48 PO; +INSU3INS3 SQ; +PRAV40TA3 PO; +PROAIR HFA; +SODIUM CHLORIDE 0.9% 1000ML 1,000 ML IV ONE; +TRAM50TA4 PO; +TRULICITY SQ
[2019-10-03 09:01] VITALS: BP 119/69
[2019-10-03] MEDS ORDERED: EMPA10TA PO (09:12)
[2019-10-03] MEDS ORDERED: INSLAN SQ (09:12)
[2019-10-03] MEDS ORDERED: PROPOFOL 10 MG/ML 20ML VIAL IV ONE ×2 (09:51→10:10)
[2019-10-03 10:19] VITALS: BP 101/76
[2019-10-03 10:24] VITALS: BP 114/72
[2019-10-03 10:30] VITALS: BP 119/72
[2019-10-03 10:35] VITALS: BP 120/72
[2019-10-03 10:40] VITALS: BP 117/83
== END 2019-10-03 10:49 | disposition home or self-care (01) ==
LOC: ENDO 07:39
PROVIDERS: ATTEND Internal Medicine Gastroenterology
DX: R19.5 Other fecal abnormalities (principal); M16.12 Unilateral primary osteoarthritis, left hip; J43.9 Emphysema, unspecified; E10.9 Type 1 diabetes mellitus without complications; E78.5 Hyperlipidemia, unspecified; G47.33 Obstructive sleep apnea (adult) (pediatric); I10 Essential (primary) hypertension; E66.01 Morbid (severe) obesity due to excess calories; Z68.42 Body mass index [BMI] 45.0-49.9, adult; Z88.0 Allergy status to penicillin; Z88.5 Allergy status to narcotic agent; Z88.8 Allergy status to other drugs, medicaments and biological substances; Z79.899 Other long term (current) drug therapy; Z79.4 Long term (current) use of insulin; Z98.890 Other specified postprocedural states; Z87.891 Personal history of nicotine dependence; Z82.49 Family history of ischemic heart disease and other diseases of the circulatory system; Z83.3 Family history of diabetes mellitus
CPT/HCPCS: 45378; 82948 ×2; A4215; A4221; A4222; A4223; A4606; A4615; A4663; J2704 ×2; J7030

== ENCOUNTER → 2020-06-09 | Outpatient (CLI) | payer OTHER, MEDICARE ==
[~2020-06-09] MED LIST changes: +EMPA10TA PO; +INSLAN SQ; -INSU3INS3 SQ; -SODIUM CHLORIDE 0.9% 1000ML 1,000 ML IV ONE
== END | disposition home or self-care (01) ==
LOC: OIH 09:23
PROVIDERS: ATTEND Internal Medicine
DX: M17.11 Unilateral primary osteoarthritis, right knee (principal)
CPT/HCPCS: 73560

== ENCOUNTER 2020-09-09 10:50 | Inpatient (IN) | payer OTHER, MEDICARE ==
[~2020-09-09] VITALS: Ht 157.5 cm; Wt 99.5 kg
[~2020-09-09 10:50] MED LIST changes: -LISI-613 PO; +LISI20TA24 PO
[2020-09-09] MEDS ORDERED: FENTANYL CITRATE PF 50 MCG/1 ML 2ML VIAL ONE (11:42)
[2020-09-09 11:50] LABS: BASOPHILS % (AUTO) 0.2 % (0.0-5.0); HEMATOCRIT 47.4 % (42-54); LYMPHOCYTES % (AUTO) 9.8 % (21.0-51.0); MEAN CORPUSCULAR HEMOGLOBIN 27.9 pg (27.0-33.0); MEAN CORPUSCULAR HGB CONC 32.5 g/dL (32.0-36.0); MEAN CORPUSCULAR VOLUME 85.9 fL (79-99); MONOCYTES % (AUTO) 4.5 % (3.0-13.0); NEUTROPHILS % (AUTO) 84.7 % (40.0-77.0); PLATELET COUNT (AUTO) 194 K/uL (130-400); RED BLOOD CELL COUNT(AUTO) 5.52 MIL/uL (4.50-6.20); RED CELL DISTRIBUTION WIDTH 15.9 % (11.0-15.5); WHITE BLOOD COUNT (AUTO) 15.1 K/uL (4.8-10.8)
[2020-09-09 12:01] LABS: CREATININE 0.7 mg/dL (0.5-1.5); POTASSIUM 4.2 mmol/L (3.5-5.1)
[2020-09-09] MEDS ORDERED: ACETAMINOPHEN 325 MG TAB PO PRN ×2 (15:30)
[2020-09-09] MEDS ORDERED: DIPHENHYDRAMINE HCL 25 MG CAPSULE PO PRN (15:30)
[2020-09-09] MEDS ORDERED: LACTATED RINGERS 1000ML 1,000 ML IV SCH (15:30)
[2020-09-09] MEDS ORDERED: DiphenhydrAMINE HCL 50 MG/ML VIAL IV PRN (15:30)
[2020-09-09] MEDS ORDERED: LACTULOSE 20 GM/30 ML UDCUP PO PRN (15:30)
[2020-09-09] MEDS ORDERED: MORPHINE 2 MG SYG IV PRN (15:30)
[2020-09-09] MEDS ORDERED: MAG/ALUM/SIMETH 30 ML UDCUP PO PRN (15:30)
[2020-09-09] MEDS ORDERED: ZOLPIDEM TARTRATE 5 MG TAB PO PRN (15:30)
[2020-09-09 16:01] LABS: INR 1.01 (0.85-1.15)
[2020-09-09 16:02] LABS: PARTIAL THROMBOPLASTIN TIME 26.2 SEC (26.3-35.5)
[2020-09-09] MEDS ORDERED: [UNRECOGNIZED DRUG - SUPPLY] NASAL (16:57)
[2020-09-09] MEDS ORDERED: ALBU8.5H8 IH (16:57)
[2020-09-09] MEDS ORDERED: TRAM50TA4 PO ×2 (16:57→16:59)
[2020-09-09] MEDS ORDERED: IPRA3AMP24 IH (16:57)
[2020-09-09] MEDS ORDERED: AEC81 PO (16:57)
[2020-09-09] MEDS ORDERED: DICL4100G TP (16:57)
[2020-09-09] MEDS ORDERED: DULA1.5P SQ (16:57)
[2020-09-09] MEDS ORDERED: 0.9%NACL 1000ML 1,000 ML IV ONE (17:25)
[2020-09-09] MEDS ORDERED: ONDANSETRON 4MG INJ IVP PRN (18:30)
[2020-09-09] MEDS ORDERED: ALBUTEROL 0.083% 2.5 MG/3 ML INH IH PRN (18:30)
[2020-09-09] MEDS: 0.9%NACL 1000ML 1,000 ML IV SCH (18:30)
[2020-09-09] MEDS ORDERED: LIDOCAINE HCL-MPF 1% 2ML VIAL IV PRN (19:30)
[2020-09-09] MEDS ORDERED: POTASSIUM CHLORIDE 10% ELIXIR 20 MEQ/15 ML UDCUP PO PRN (19:30)
[2020-09-09] MEDS ORDERED: DEXTROSE 50%-WATER 50 ML DISP.SYRIN IV PRN (19:30)
[2020-09-09] MEDS ORDERED: POTASSIUM CHLORIDE 20MEQ/100ML 100 ML IV PRN (19:30)
[2020-09-09] MEDS ORDERED: GLUCAGON 1MG KIT 1 MG ML IM PRN (19:30)
[2020-09-09] MEDS ORDERED: ENOXAPARIN SODIUM 30 MG/0.3 ML SQ ONE ×2 (20:42→21:00)
[2020-09-09] MEDS ORDERED: FAMOTIDINE 20MG TAB PO SCH (21:00)
[2020-09-09] MEDS ORDERED: TOPIRAMATE 100 MG TAB PO SCH (21:00)
[2020-09-09] MEDS: INSULIN HUMULIN R 100 UNIT/ML 3ML SQ SCH (21:00)
[2020-09-09] MEDS ORDERED: EZETIMIBE 10 MG TAB PO SCH (21:00)
[2020-09-09] MEDS: TRELEGY ELLIPTA PO SCH (21:00)
[2020-09-09] MEDS: TOPIRAMATE 100 MG TAB PO SCH (21:00)
[2020-09-09] MEDS ORDERED: INSULIN GLARGINE 100 UNITS/ML 10 ML VIAL SQ SCH (21:00)
[2020-09-09] MEDS ORDERED: [UNRECOGNIZED DRUG - OTHER] NASAL SCH (21:00)
[2020-09-09] MEDS ORDERED: LISINOPRIL 20 MG TABLET PO SCH (21:00)
[2020-09-09] MEDS: INSULIN GLARGINE 100 UNITS/ML 10 ML VIAL SQ SCH (21:00)
[2020-09-09 22:25] VITALS: BP 146/88
[2020-09-09] MEDS: MORPHINE 2 MG SYG IVP PRN (22:41)
[2020-09-10] VITALS (24 sets, daily range): BP systolic 84–130; BP diastolic 40–75
[2020-09-10 05:28] LABS: HEMATOCRIT 44.8 % (42-54); MEAN CORPUSCULAR HEMOGLOBIN 27.8 pg (27.0-33.0); MEAN CORPUSCULAR HGB CONC 31.5 g/dL (32.0-36.0); MEAN CORPUSCULAR VOLUME 88.2 fL (79-99); RED BLOOD CELL COUNT(AUTO) 5.08 MIL/uL (4.50-6.20); RED CELL DISTRIBUTION WIDTH 15.9 % (11.0-15.5); WHITE BLOOD COUNT (AUTO) 10.8 K/uL (4.8-10.8)
[2020-09-10 05:42] LABS: CREATININE 0.8 mg/dL (0.5-1.5); MAGNESIUM 2.1 mg/dL (1.80-2.40); POTASSIUM 3.6 mmol/L (3.5-5.1)
[2020-09-10] MEDS: KCL 20 MEQ ERTAB PO PRN ×2 (06:07→08:39)
[2020-09-10] MEDS: INSULIN HUMULIN R 100 UNIT/ML 3ML SQ SCH ×5 (06:07→20:34)
[2020-09-10] MEDS: 0.9%NACL 1000ML 1,000 ML IV SCH ×4 (06:08→20:00)
[2020-09-10] MEDS ORDERED: CLINDAMYCIN IVPB 900MG/50ML 50 ML IV PRN (08:00)
[2020-09-10] MEDS: LISINOPRIL 20 MG TABLET PO SCH (08:39)
[2020-09-10] MEDS: PANTOPRAZOLE 40 MG TAB DR PO SCH (08:40)
[2020-09-10] MEDS: TOPIRAMATE 100 MG TAB PO SCH ×2 (08:41→19:59)
[2020-09-10] MEDS: JARDIANCE 10MG PO SCH (08:41)
[2020-09-10] MEDS: EZETIMIBE 10 MG TAB PO SCH (08:42)
[2020-09-10] MEDS: INSULIN GLARGINE 100 UNITS/ML 10 ML VIAL SQ SCH ×2 (08:42→21:13)
[2020-09-10] MEDS ORDERED: EMPAGLIFLOZIN 10 MG PO SCH (09:00)
[2020-09-10] MEDS: SIMVASTATIN 20 MG TABLET PO SCH (12:00)
[2020-09-10] MEDS ORDERED: NON-FORMULARY MEDICATION 1 EACH (Pravastatin Sodium 40 MG) PO SCH (12:00)
[2020-09-10] MEDS ORDERED: VANCOMYCIN 1G/250ML KIT 250 ML IV ONE (14:00)
[2020-09-10] MEDS ORDERED: ROPIVACAINE 0.5% 5MG/ML 30ML IJ ONE (15:04)
[2020-09-10] MEDS ORDERED: SUCCINYLCHOLINE CHLORIDE 20 MG/ML 10 ML VIAL ONE (15:05)
[2020-09-10] MEDS ORDERED: LIDOCAINE PF 100MG/5ML (2%) SYRINGE 5ML ONE (15:05)
[2020-09-10] MEDS ORDERED: PROPOFOL 10 MG/ML 20ML VIAL IV ONE ×2 (15:06→15:08)
[2020-09-10] MEDS ORDERED: ROCURONIUM 10MG/1ML SYR 10 MG/ML ML ONE ×2 (15:07→15:08)
[2020-09-10] MEDS ORDERED: ONDANSETRON 4MG INJ ONE (15:07)
[2020-09-10] MEDS ORDERED: FENTANYL CITRATE PF 50 MCG/1 ML 5ML AMP IV ONE (15:07)
[2020-09-10] MEDS ORDERED: MIDAZOLAM HCL 1 MG/ML 2ML VIAL ONE (15:13)
[2020-09-10] MEDS ORDERED: CLINDAMYCIN 900MG/6ML INJ ONE (16:50)
[2020-09-10] MEDS ORDERED: TRAMADOL HCL 50 MG TABLET PO PRN (18:15)
[2020-09-10] MEDS ORDERED: LIDOCAINE HCL-MPF 1% 2ML VIAL IV PRN (18:15)
[2020-09-10] MEDS ORDERED: POTASSIUM CHLORIDE 10% ELIXIR 20 MEQ/15 ML UDCUP PO PRN (18:15)
[2020-09-10] MEDS ORDERED: DIPHENHYDRAMINE HCL 25 MG CAPSULE PO PRN (18:15)
[2020-09-10] MEDS ORDERED: CALCIUM CARB 500MG PO PRN (18:15)
[2020-09-10] MEDS ORDERED: DiphenhydrAMINE HCL 50 MG/ML VIAL IVP PRN (18:15)
[2020-09-10] MEDS ORDERED: TEMAZEPAM 15 MG CAPSULE PO PRN (18:15)
[2020-09-10] MEDS: ACETAMINOPHEN 500 MG TABLET PO SCH (18:15)
[2020-09-10] MEDS ORDERED: KCL 20 MEQ ERTAB PO PRN (18:15)
[2020-09-10] MEDS ORDERED: ONDANSETRON 4MG INJ IVP PRN (18:15)
[2020-09-10] MEDS ORDERED: FERROUS FUMARATE 324 MG TABLET PO PRN (18:15)
[2020-09-10] MEDS ORDERED: POTASSIUM CHLORIDE 20MEQ/100ML 100 ML IV PRN (18:15)
[2020-09-10] MEDS: FAMOTIDINE 20MG TAB PO SCH (19:58)
[2020-09-10] MEDS: ASPIRIN 81MG CHEW TAB PO SCH (19:59)
[2020-09-10] MEDS: MORPHINE 2 MG SYG IVP PRN (20:00)
[2020-09-10] MEDS: TRELEGY ELLIPTA PO SCH (20:13)
[2020-09-10] MEDS: CELECOXIB 200 MG CAP PO SCH (21:11)
[2020-09-10] MEDS: CLINDAMYCIN IVPB 900MG/50ML 50 ML IVPB SCH (23:26)
[2020-09-11 00:58] VITALS: BP 106/56
[2020-09-11] MEDS: ACETAMINOPHEN 500 MG TABLET PO SCH ×3 (02:01→19:22)
[2020-09-11] MEDS: 0.9%NACL 1000ML 1,000 ML IV SCH ×3 (03:47→14:15)
[2020-09-11 04:16] VITALS: BP 99/51
[2020-09-11 05:09] LABS: HEMATOCRIT 37.6 % (42-54); MEAN CORPUSCULAR HEMOGLOBIN 27.7 pg (27.0-33.0); MEAN CORPUSCULAR HGB CONC 31.1 g/dL (32.0-36.0); MEAN CORPUSCULAR VOLUME 88.9 fL (79-99); RED BLOOD CELL COUNT(AUTO) 4.23 MIL/uL (4.50-6.20); RED CELL DISTRIBUTION WIDTH 16.1 % (11.0-15.5)
[2020-09-11] MEDS: TRAMADOL HCL 50 MG TABLET PO PRN ×2 (05:21→13:07)
[2020-09-11 05:28] LABS: CREATININE 0.8 mg/dL (0.5-1.5); POTASSIUM 3.8 mmol/L (3.5-5.1)
[2020-09-11] MEDS: INSULIN HUMULIN R 100 UNIT/ML 3ML SQ SCH ×4 (06:02→20:53)
[2020-09-11] MEDS: CLINDAMYCIN IVPB 900MG/50ML 50 ML IVPB SCH (06:08)
[2020-09-11] MEDS: MORPHINE 2 MG SYG IVP PRN (06:13)
[2020-09-11 08:34] VITALS: BP 99/52
[2020-09-11] MEDS: FAMOTIDINE 20MG TAB PO SCH ×2 (09:00→20:44)
[2020-09-11] MEDS: JARDIANCE 10MG PO SCH (09:00)
[2020-09-11] MEDS: TAMSULOSIN HCL 0.4 MG CAP.ER.24H PO SCH (09:00)
[2020-09-11] MEDS: LISINOPRIL 20 MG TABLET PO SCH (09:00)
[2020-09-11] MEDS: PANTOPRAZOLE 40 MG TAB DR PO SCH (09:30)
[2020-09-11] MEDS: CELECOXIB 200 MG CAP PO SCH ×2 (09:37→20:45)
[2020-09-11] MEDS: ASPIRIN 81MG CHEW TAB PO SCH ×2 (09:37→20:44)
[2020-09-11] MEDS: TOPIRAMATE 100 MG TAB PO SCH ×2 (09:39→20:44)
[2020-09-11] MEDS: INSULIN GLARGINE 100 UNITS/ML 10 ML VIAL SQ SCH ×2 (09:41→20:56)
[2020-09-11] MEDS: EZETIMIBE 10 MG TAB PO SCH (09:44)
[2020-09-11] MEDS: ENOXAPARIN SODIUM 40 MG/0.4 ML SYRINGE SQ SCH (09:47)
[2020-09-11] MEDS: KETOROLAC 15MG/ML VIAL (15MG/ML) IV PRN ×2 (09:47→20:50)
[2020-09-11] MEDS: POLYETHYLENE GLYCOL 3350 17 GM POWD.PACK PO SCH (09:49)
[2020-09-11 11:18] VITALS: BP 120/64
[2020-09-11] MEDS: PSYLLIUM SEED 1 EACH PACKET PO SCH (13:06)
[2020-09-11] MEDS: SIMVASTATIN 20 MG TABLET PO SCH (13:07)
[2020-09-11] MEDS ORDERED: LISI20TA24 PO (13:10)
[2020-09-11] MEDS ORDERED: TRAM50TA4 PO (13:10)
[2020-09-11] MEDS ORDERED: ASPI-1005 PO (13:10)
[2020-09-11] MEDS ORDERED: INSLAN SQ (13:13)
[2020-09-11 16:18] VITALS: BP 115/62
[2020-09-11 20:24] VITALS: BP 132/72
[2020-09-11] MEDS: TRELEGY ELLIPTA PO SCH (20:46)
[2020-09-12 00:20] VITALS: BP 130/65
[2020-09-12] MEDS: ACETAMINOPHEN 500 MG TABLET PO SCH ×2 (02:29→10:42)
[2020-09-12 04:20] VITALS: BP 127/69
[2020-09-12 05:11] LABS: HEMATOCRIT 38.2 % (42-54); MEAN CORPUSCULAR HEMOGLOBIN 27.3 pg (27.0-33.0); MEAN CORPUSCULAR HGB CONC 30.9 g/dL (32.0-36.0); MEAN CORPUSCULAR VOLUME 88.4 fL (79-99); RED BLOOD CELL COUNT(AUTO) 4.32 MIL/uL (4.50-6.20); RED CELL DISTRIBUTION WIDTH 15.7 % (11.0-15.5); WHITE BLOOD COUNT (AUTO) 9.3 K/uL (4.8-10.8)
[2020-09-12 05:27] LABS: CREATININE 0.7 mg/dL (0.5-1.5); POTASSIUM 3.7 mmol/L (3.5-5.1)
[2020-09-12] MEDS: INSULIN HUMULIN R 100 UNIT/ML 3ML SQ SCH ×3 (06:05→16:28)
[2020-09-12] MEDS: KETOROLAC 15MG/ML VIAL (15MG/ML) IV PRN (07:38)
[2020-09-12] MEDS: INSULIN GLARGINE 100 UNITS/ML 10 ML VIAL SQ SCH (08:00)
[2020-09-12 08:04] VITALS: BP 118/69
[2020-09-12] MEDS: CELECOXIB 200 MG CAP PO SCH (08:14)
[2020-09-12] MEDS: TAMSULOSIN HCL 0.4 MG CAP.ER.24H PO SCH (08:14)
[2020-09-12] MEDS: ASPIRIN 81MG CHEW TAB PO SCH (08:14)
[2020-09-12] MEDS: FAMOTIDINE 20MG TAB PO SCH (08:14)
[2020-09-12] MEDS: EZETIMIBE 10 MG TAB PO SCH (08:14)
[2020-09-12] MEDS: TOPIRAMATE 100 MG TAB PO SCH (08:15)
[2020-09-12] MEDS: ENOXAPARIN SODIUM 40 MG/0.4 ML SYRINGE SQ SCH (08:17)
[2020-09-12] MEDS: POLYETHYLENE GLYCOL 3350 17 GM POWD.PACK PO SCH (08:22)
[2020-09-12] MEDS: LISINOPRIL 20 MG TABLET PO SCH (08:22)
[2020-09-12] MEDS: PANTOPRAZOLE 40 MG TAB DR PO SCH (08:22)
[2020-09-12] MEDS: JARDIANCE 10MG PO SCH (08:23)
[2020-09-12 11:08] VITALS: BP 138/82
[2020-09-12] MEDS: SIMVASTATIN 20 MG TABLET PO SCH (11:34)
[2020-09-12] MEDS: TRAMADOL HCL 50 MG TABLET PO PRN (11:35)
[2020-09-12] MEDS: PSYLLIUM SEED 1 EACH PACKET PO SCH (11:39)
[2020-09-12 16:20] VITALS: BP 132/69
[2020-09-12] MEDS ORDERED: BISACODYL 5 MG TABLET.DR PO PRN (18:15)
[2020-09-13] MEDS ORDERED: BISACODYL 10 MG SUPP.RECT RC PRN (18:15)
== END 2020-09-12 18:00 | DRG 494 ==
LOC: EDH 10:50 → EDHIP 16:55 → 3AH 21:17
PROVIDERS: ADMIT Orthopaedic Surgery; ATTEND Orthopaedic Surgery
PROC: 0QSH04Z Reposition Left Tibia with Internal Fixation Device, Open Approach (ICD-10-PCS; principal; 2020-09-10 15:11)
PROC: 3E0T3BZ Introduction of Anesthetic Agent into Peripheral Nerves and Plexi, Percutaneous Approach (ICD-10-PCS; 2020-09-10 15:11)
PROC: 3E0T33Z Introduction of Anti-inflammatory into Peripheral Nerves and Plexi, Percutaneous Approach (ICD-10-PCS; 2020-09-10 15:11)
DX: S82.142A Displaced bicondylar fracture of left tibia, initial encounter for closed fracture (principal); E11.42 Type 2 diabetes mellitus with diabetic polyneuropathy; E11.51 Type 2 diabetes mellitus with diabetic peripheral angiopathy without gangrene; J45.909 Unspecified asthma, uncomplicated; E66.01 Morbid (severe) obesity due to excess calories; E78.2 Mixed hyperlipidemia; G47.33 Obstructive sleep apnea (adult) (pediatric); G89.29 Other chronic pain; I25.10 Atherosclerotic heart disease of native coronary artery without angina pectoris; J44.9 Chronic obstructive pulmonary disease, unspecified; I11.9 Hypertensive heart disease without heart failure; K21.9 Gastro-esophageal reflux disease without esophagitis; Z96.643 Presence of artificial hip joint, bilateral; Z20.822 Contact with and (suspected) exposure to COVID-19; W01.0XXA Fall on same level from slipping, tripping and stumbling without subsequent striking against object, initial encounter; Y93.89 Activity, other specified; Y92.89 Other specified places as the place of occurrence of the external cause; Y99.8 Other external cause status; Z68.39 Body mass index [BMI] 39.0-39.9, adult; Z79.4 Long term (current) use of insulin; Z79.51 Long term (current) use of inhaled steroids; Z79.82 Long term (current) use of aspirin; Z79.899 Other long term (current) drug therapy; Z88.0 Allergy status to penicillin; Z88.8 Allergy status to other drugs, medicaments and biological substances; Z87.891 Personal history of nicotine dependence; Z83.3 Family history of diabetes mellitus; Z82.49 Family history of ischemic heart disease and other diseases of the circulatory system
CPT/HCPCS: 36415; 71045; 73562; 73564; 80048; 82948; 83735; 85025; 85027; 85610; 85730; 86850; 86900; 86901; 87426; 93005; 97039; G0378; J0330; J1650; J1815; J1885; J2001; J2250; J2405; J2704; J2795; J3010; J3490; J7030; J7120; U0003

== ENCOUNTER → 2021-02-10 | Outpatient (CLI) | payer OTHER, MEDICARE ==
[~2021-02-10] MED LIST changes: +ALBU8.5H8 IH; +ASPI-1005 PO; +DICL4100G TP; -FLUT1AER IH; +IPRA3AMP24 IH; -PROAIR HFA; -TOPI100T37 PO; -TRULICITY SQ; -UMEC62.5 IH; +[UNRECOGNIZED DRUG - SUPPLY] NASAL
== END | disposition home or self-care (01) ==
LOC: SHCH 13:05
PROVIDERS: ATTEND Internal Medicine Cardiovascular Disease
DX: I08.1 Rheumatic disorders of both mitral and tricuspid valves (principal)
CPT/HCPCS: 93306

== ENCOUNTER → 2021-02-13 | Outpatient (CLI) | payer OTHER, MEDICARE | END | disposition home or self-care (01) | LOC: SHCH 10:23 | PROVIDERS: ATTEND Internal Medicine Cardiovascular Disease | DX: I87.2 Venous insufficiency (chronic) (peripheral) (principal); I73.9 Peripheral vascular disease, unspecified | CPT/HCPCS: 93925; 93970 ==

== ENCOUNTER → 2022-05-25 | Outpatient (CLI) | payer OTHER, MEDICARE ==
[~2022-05-25] MED LIST changes: +REGADENOSON 0.4 MG/5 ML PF SYG IVP SCH
== END | disposition home or self-care (01) ==
LOC: SHCH 08:12
PROVIDERS: ATTEND Internal Medicine Cardiovascular Disease
DX: I25.119 Atherosclerotic heart disease of native coronary artery with unspecified angina pectoris (principal); R06.09 Other forms of dyspnea
CPT/HCPCS: 78452; 96374; 93017; J2785; A9500 ×2

== ENCOUNTER → 2024-01-06 | Outpatient (CLI) | payer OTHER, MEDICARE ==
[~2024-01-06] MED LIST changes: -REGADENOSON 0.4 MG/5 ML PF SYG IVP SCH
== END | disposition home or self-care (01) ==
LOC: SHCH 09:22
PROVIDERS: ATTEND Internal Medicine Cardiovascular Disease
DX: I08.2 Rheumatic disorders of both aortic and tricuspid valves (principal); R01.1 Cardiac murmur, unspecified
CPT/HCPCS: 93306